=== PATIENT | male | born 1935 | race Two or more races ===

== ENCOUNTER 2020-08-01 06:38 | Outpatient (CLI) | payer OTHER ==
[~2020-08-01 06:38] MED LIST: DIAZEPAM10 MG PO; GABAPENTIN100 MG PO; ULTRAM50 MG
== END 2020-08-01 06:46 | disposition home or self-care (01) ==
LOC: T RESPIRAT 06:38 → LAB 06:38 → T RESPIRAT 06:46
DX: R09.02 Hypoxemia (principal)